=== PATIENT | male | born 1995 | race African-American/Black ===

== ENCOUNTER 2018-07-23 10:07 | Emergency (ER) | payer OTHER, SELFPAY ==
[2018-07-23] MEDS ORDERED: ISOVUE-370 76%-LOCM 1 ML ONE (10:29)
[2018-07-23] MEDS ORDERED: cefTRIAXone\\ROCEPHIN 2 GM VIAL ONE (13:46)
[2018-07-23] MEDS ORDERED: Dexamethasone 10 MG/ML VIAL ONE (13:46)
--- NOTE | 2018-07-23 14:41 | CT ---
Exam: Postcontrast soft tissue neck CT History throat pain. Sore throat and fever, x2 days. Comparison none FINDINGS: Visualized orbits and brain parenchyma are unremarkable There is extensive hypertrophy of the nasopharynx and posterior a due to lymphoid tissue hyperplasia. There is no CT evidence of a peritonsillar abscess Evaluation of the soft tissue neck structures is limited by decreased fat planes as well as poor cont rast bolus Symmetric attenuation of the parotid and submandibular glands. Symmetric attenuation of cleidomastoid muscles Aerodigestive tract is patent. No mucosal abnormality. Midline fatty raphae of the tongue is preserved Epiglottis is normal caliber Preepiglottic fat is preserved. There is no prevertebral soft tissue swelling. Limited evaluation of the great vessels of the neck which are grossly patent Central spinal canal is and neural foramina are patent. Evaluation is limited by technique. Cervical spine vertebral body height is maintained. No fracture. Upper mediastinum and lung apices are unremarkable Enlarged left level 2 lymph nodes measuring 1.3 x 1.8 and 1.0 x 1.4 cm. A large left level 3 lymph no de measuring 1.4 x 2.1 centimeters. Upper normal left level 5 lymph node measuring 1.0 x 0.87. IMPRESSION: 1. 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 2. Left neck lymphadenopathy. 3. No evidence of peritonsillar abscess. A forementioned lymphadenopathy is presumed to be reactive. Continued surveillance after presumed acute infection resolves. If lymphadenopathy persists, exclusion of a primary or metastatic process involving the lymphoid tissue must be considered.
== END 2018-07-23 14:45 | disposition home or self-care (01) ==
LOC: ERS 10:07
DX: J36 Peritonsillar abscess (principal)
CPT/HCPCS: 70491; 87081; 87430; 96374; 96375; J0696; J1100; Q9966